=== PATIENT | male | born 1960 | race Caucasian/White ===

== ENCOUNTER 2019-08-06 11:54 | Emergency (ER) | payer MEDICARE, MEDICAID ==
[2019-08-06] MEDS ORDERED: 0.9 % SODIUM CHLORIDE 1,000 ML BAG IV ONE (12:10)
[2019-08-06] MEDS ORDERED: ONDANSETRON HCL IV 4 MG/2 ML VIAL IV ONE (12:10)
--- NOTE | 2019-08-06 12:23 | Emergency Department Record ---
History of Present Illness - General Chief complaint: Nausea, Vomiting, Diarrhea Stated complaint: NAUSEA/VOMITING Time Seen by Provider: 08/06/19 12:00 Source: Patient Mode of Arrival: Ambulatory Limitations: No limitations - History of Present Illness Initial comments: The patient is here due to a 2 week hx of intermittent dry heaving mainly in the morning. He has had mild abdominal cramping with it but denies any fever, dysuria, back pain, CP, SOB, or vomiting any blood. The patient has a long hx of similar issues and usually is able to take care of it at home but this episode seems to be lasting longer. MD complaint: Nausea, Vomiting Onset/Timin -: Week(s) Description of Vomiting: Watery Associated Abdominal Pain: Yes Location: RUQ Radiation: None Severity scale (1-10): 8 Quality: Aching Consistency: Constant Improves with: None Worsens with: None Context: Other Associated Symptoms: Nausea/vomiting - Related Data Home Medications Medication Instructions Recorded Confirmed Last Taken Atorvastatin Calcium 20 mg PO DAILY 08/06/19 08/06/19 Unknown Buspirone HCl [Buspar] 7.5 mg PO DAILY 08/06/19 08/06/19 Unknown Duloxetine HCl 60 mg PO DAILY 08/06/19 08/06/19 Unknown Tizanidine HCl 4 mg PO DAILY 08/06/19 08/06/19 Unknown Allergies Allergy/AdvReac Type Severity Reaction Status Date / Time metaxalone [From Skelaxin] Allergy DIFFICULTY Verified 05/18/15 16:13 BREATHING promethazine HCl Allergy HYPERSENSIT Verified 05/18/15 16:13 [From Phenergan] IVITY Travel Screening - Travel/Exposure Within Last 30 Days Have you traveled within the last 30 days?: No Review of Systems Constitutional: Denies: Chills, Fever Eyes: Denies: Eye discharge ENT: Denies: Congestion Respiratory: Denies: Cough, Dyspnea Cardiovascular: Denies: Arrhythmia Endocrine: Denies: Fatigue Gastrointestinal: Reports: Nausea, Vomiting. Denies: Diarrhea Genitourinary: Denies: Hematuria Musculoskeletal: Denies: Arthralgia Skin: Denies: Bruising Past Medical History - SOCIAL HISTORY Smoking Status: Current every day smoker Alcohol Use: None Drug Use Detail:: Marijuana - RESPIRATORY Hx Respiratory Disorders: Yes Hx Sleep Apnea: Yes Hx of CPAP: No - CARDIOVASCULAR Hx Cardio Disorders: Yes Hx Edema: Yes Hx Hypertension: Yes Comment:: d/t john discs - NEURO Hx Neuro Disorders: Yes Hx Headaches: Yes Hx of Migraines: Yes - GI Hx GI Disorders: Yes Hx Reflux: Yes Hx Nausea/Vomiting: Yes Hx of Polyps: Yes - Hx Genitourinary Disorders: Yes Hx Kidney Stones: Yes - ENDOCRINE Hx Endocrine Disorders: No - MUSCULOSKELETAL Hx Musculoskeletal Disorders: Yes Hx Arthritis: Yes - PSYCH Hx Psych Problems: Yes Hx Anxiety: Yes Hx Depression: Yes - HEMATOLOGY/ONCOLOGY Hx Hematology/Oncology Disorders: No Family Medical History Any Significant Family History?: Yes Hx Cancer: Father Hx Diabetes: Mother Hx Heart Disease: Mother Hx HTN: Mother Physical Exam - General General Appearance: Alert, Oriented x3, Cooperative, No acute distress - Head Head exam: Atraumatic, Normocephalic, Normal inspection - Eye Eye exam: Normal appearance, PERRL - ENT Throat exam: Normal inspection. negative: Tonsillar erythema, Tonsillar exudate - Neck Neck exam: Normal inspection, Full ROM. negative: Tenderness - Respiratory Respiratory exam: Normal lung sounds bilaterally. negative: Respiratory distress - Cardiovascular Cardiovascular Exam: Regular rate, Normal rhythm, Normal heart sounds - GI/Abdominal GI/Abdominal exam: Soft, Normal bowel sounds. negative: Distended, Guarding, Rebound, Rigid, Tenderness - Extremities Extremities exam: Normal inspection, Full ROM, Normal capillary refill. negative: Tenderness - Neurological Neurological exam: Alert, Normal gait, Oriented X3. negative: Abnormal gait, Altered, Motor sensory deficit - Psychiatric Psychiatric exam: negative: Anxious Course Vital Signs 08/06/19 11:58 Temperature 98.1 F Pulse Rate 85 Respiratory 18 Rate Blood Pressure 142/88 Pulse Ox 98 - Reevaluation(s) Reevaluation #1: The patient is doing a lot better now. He denies any nausea or any new pain or discomfort. On exam his abdomen is very soft and nontender in all 4 quads. I did discuss the CT report with him and did give him a copy to take to his PCP. The patient is feeling much better and is ready for home. 08/06/19 13:27 Medical Decision Making - Data Complexity MDM Data: Labs Ordered and/or Reviewed, X-Ray Ordered and/or Reviewed - Lab Data Result diagrams: 08/06/19 12:20 08/06/19 12:20 - Radiology Data Radiology results: Report reviewed (CT: Neg for acute changes.) Disposition Disposition: Discharge Clinical Impression: Nausea and vomiting in adult Disposition: Home, Self-Care Condition: (2) Stable Instructions: Acute Nausea and Vomiting (ED) Additional Instructions: Please continue your regular medicines and please see your doctor for recheck and to discuss the changes in the hip bones. Please try to quit smoking Marijuana due to the possibility of your vomiting being due to Cannabis Hype remesis Syndrome. Return to the ER for any worsening symptoms, pain, fever, or bleeding. Forms: Patient Portal Access Time of Disposition: 13:29 Quality - Quality Measures Quality Measures: N/A - Blood Pressure Screening View Details: Yes Does Patient Have Any of the Following: No Blood Pressure Classification: Pre-Hypertensive BP Reading Systolic Measurement: 142 Diastolic Measurement: 88 Screening for High Blood Pressure: < Pre-Hypertensive BP, F/U Documented > [G8950] Pre-Hypertensive Follow-up Interventions: Referral to alternative/primary care provider.
[2019-08-06 12:30] LABS: ABSOLUTE NEUTROPHIL COUNT 6.68; BASO % 0.2 % (0-6); EOS % 0.6 % (0-6); GRAN % 74.9 % (47-80); HEMATOCRIT 46.1 % (42.0-52.0); HEMOGLOBIN 15.7 gm/dl (14.0-18.0); LYMPH % 19.3 % (16-45); MEAN CELL VOLUME 93.7 fl (81-97); MEAN CORPUSCULAR HEMOGLOBIN 31.9 pg (27-33); MEAN CORPUSCULAR HGB CONC 34.1 g/dl (32-36); MEAN PLATELET VOLUME 9.7 fl (7.4-10.4); PLATELET COUNT 271 K/uL (130-400); RED BLOOD COUNT 4.92 M/uL (4.40-5.70); RED CELL DISTRIBUTION WIDTH 13.8 % (11.5-14.5); WHITE BLOOD COUNT W/O DIFF 8.9 K/uL (4.2-12.2)
[2019-08-06 12:44] LABS: BLOOD UREA NITROGEN 9 mg/dL (8-23); CREATININE 0.9 mg/dL (0.7-1.2); EST GLOMERULAR FILTRATION RATE > 60 mL/min
[2019-08-06 12:45] LABS: LIPASE 12 U/L (13-60); TOTAL PROTEIN 6.8 g/dL (6.6-8.7)
[2019-08-06 12:47] LABS: GLUCOSE,RANDOM 137 mg/dL (74-109)
[2019-08-06 12:49] LABS: ALT/SGPT 14 U/L (<41)
[2019-08-06 12:50] LABS: ALBUMIN 4.1 g/dL (4.0-5.0); ALKALINE PHOSPHATASE 86 U/L (40-129); AST/SGOT 16 U/L (10.0-50.0)
[2019-08-06 12:51] LABS: BILIRUBIN,DIRECT < 0.2 mg/dL (0-0.3)
--- NOTE | 2019-08-06 12:59 | CT SCAN REPORT ---
EXAMINATION: CT Abdomen and Pelvis without IV Contrast EXAM DATE: 08/06/2019 12:41 PM TECHNIQUE: Standard protocol CT imaging of the abdomen and pelvis was performed without intravenous c ontrast. INDICATION: Diffuse AP with vomiting. COMPARISON: May 09, 2016 ENCOUNTER: Not applicable CT ABDOMEN AND PELVIS FINDINGS: Lung Bases: Tiny subpleural nodule lower left oblique fissure unchanged compatible with insignificant intrapulmonary lymph node. No new airspace disease. Hepatobiliary: The liver has a normal size with a smooth surface. The gallbladder is absent. There is no biliary dilatation. Pancreas: The pancreas is normal. Spleen: The spleen is not enlarged. Adrenals: The adrenal glands are normal. Kidneys, Ureters, & Bladder: Both kidneys have a normal size and morphology. There is no hydronephro sis. No renal calculi are present. Both ureters have a normal course and caliber and the urinary blad david a normal morphology and uniform wall thickness. No ureteral or bladder calculi are identified. Gastrointestinal: The stomach and small bowel are normal with no obstruction or inflammation. The jai endix is normal. There is diverticular disease involving primarily the left colon and sigmoid segment with no associated inflammation. The large bowel is otherwise unremarkable. Reproductive Organs: Unremarkable Lymphatic System: There is no adenopathy within the abdomen or pelvis. Vasculature: Normal caliber abdominal aorta with mild atherosclerotic disease. Peritoneum: No free fluid, free air, or inflammation Abdominal wall & Musculoskeletal: No suspicious bone lesions. Serpiginous geographic sclerosis at the femoral heads bilaterally right larger than left consistent with chronic avascular necrosis. No femo ral head flattening or fragmentation. Lumbar hemilaminectomy defects at mid and lower levels. Assessment of the solid organs, soft tissues, and vascular structures is overall limited on noncontra st imaging, IMPRESSION: 1. Bilateral hip avascular necrosis. 2. Colonic diverticulosis. No acute diverticulitis changes. No evidence of bowel obstruction. 3. Other incidental findings as above. Dictated by: Geoffrey Richardson DO on 08/06/2019 12:49 PM. .
[2019-08-06 13:15] LABS: URINE APPEARANCE CLEAR; URINE BILIRUBIN NEGATIVE (NEGATIVE); URINE BLOOD TRACE-I (NEGATIVE); URINE COLOR YELLOW; URINE GLUCOSE (UA) NEGATIVE (NEGATIVE); URINE KETONE NEGATIVE (NEGATIVE); URINE LEUKOCYTE ESTERASE NEGATIVE (NEGATIVE); URINE NITRITE NEGATIVE (NEGATIVE); URINE PROTEIN NEGATIVE (NEGATIVE)
[2019-08-06 13:24] LABS: URINE EPITHELIAL CELLS 0 - 2 (FEW); URINE RBC 0 - 2 (NONE SEEN); URINE WBC 0 - 2 (0-2/hpf)
== END 2019-08-06 13:54 | disposition home or self-care (01) ==
LOC: ER 11:54
DX: R11.2 Nausea with vomiting, unspecified (principal); R19.7 Diarrhea, unspecified; R10.11 Right upper quadrant pain; I10 Essential (primary) hypertension; F17.210 Nicotine dependence, cigarettes, uncomplicated
CPT/HCPCS: 74176; 80048; 80076; 81001; 83690; 85025; 96374; 99284; J2405; J7030